=== PATIENT | female | born 2000 | race Caucasian/White ===

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

== ENCOUNTER 2020-02-17 17:57 | Emergency (ER) | payer MEDICAID ==
[2020-02-17 18:06] VITALS: BP 126/61
--- NOTE | 2020-02-17 19:14 | Event Note ---
ED Screening Note Date of service: 02/17/20 Time: 19:13 ED Screening Note: Patient complains of right shoulder getting stuck in being very painful intermittently for the past month States shoulder got stuck for an extended period of time today and her dad had to move it out of place This initial assessment/diagnostic orders/clinical plan/treatment(s) is/are subject to change based on patients health status, clinical progression and re- assessment by fellow clinical providers in the ED. Further treatment and workup at subsequent clinical providers discretion. Patient/guardian urged not to elope from the ED as their condition may be serious if not clinically assessed and managed. Initial orders include: X-ray
[2020-02-17] MEDS ORDERED: CYCLOBENZAPRINE 10 MG TAB PO ONE (20:06)
[2020-02-17] MEDS ORDERED: IBUPROFEN 600 MG TAB PO ONE ×2 (20:06→20:08)
[2020-02-17] MEDS ORDERED: ACETAMINOPHEN 325 MG TAB PO ONE (20:06)
[2020-02-17] MEDS ORDERED: ACETAMINOPHEN 325 MG TAB ONE (20:08)
[2020-02-17] MEDS ORDERED: CYCLOBENZAPRINE 10 MG TAB ONE (20:08)
--- NOTE | 2020-02-17 20:39 | XRay Report ---
RIGHT SHOULDER 3 VIEWS INDICATION / CLINICAL INFORMATION: pain, injury, shoulder getting stuck. COMPARISON: None available. FINDINGS: No significant skeletal abnormality Signer Name: Kar Candelario MD FACR Signed: 02/17/2020 8:35 PM Workstation Name: [id number]
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
== END 2020-02-17 22:15 | disposition home or self-care (01) ==
LOC: ED 17:57
DX: S43.401A Unspecified sprain of right shoulder joint, initial encounter (principal); F31.9 Bipolar disorder, unspecified; Z98.890 Other specified postprocedural states; Z79.899 Other long term (current) drug therapy; Y04.2XXA Assault by strike against or bumped into by another person, initial encounter; Y93.89 Activity, other specified; Y92.009 Unspecified place in unspecified non-institutional (private) residence as the place of occurrence of the external cause; Y99.8 Other external cause status